=== PATIENT | female | born 1995 | race Hispanic/Latino ===

== ENCOUNTER 2021-02-07 21:32 | Emergency (ER) | payer SELFPAY ==
[2021-02-07] MEDS ORDERED: Boostrix 0.5 ML (Tdap) VIAL ONE (23:57)
== END 2021-02-08 00:17 | disposition home or self-care (01) ==
LOC: CSHERS 21:32
DX: S50.812A Abrasion of left forearm, initial encounter (principal); G43.909 Migraine, unspecified, not intractable, without status migrainosus; W26.0XXA Contact with knife, initial encounter
CPT/HCPCS: 90471; 90715; 99284

== ENCOUNTER 2021-08-29 14:12 | Emergency (ER) | payer OTHER, SELFPAY ==
[2021-08-29 14:44] LABS: BHCG - Serum Negative (NEGATIVE); Pregs Control Background? CLEAR/WHITE (CLR/WHITE); Pregs Control Bar Appear? YES (CONTROL BAR)
[2021-08-29 14:51] LABS: ALT (SGPT) 28 U/L (8-55); AST (SGOT) 19 U/L (5-34); Alkaline Phosphatase 69 U/L (40-110); Anion Gap 12 mmol/L (10-20); BUN (Urea Nitrogen) 9 mg/dL (7.0-18.7); Bilirubin, Total 0.7 mg/dL (0.2-1.2); Calc. Creatinine Clearance 0 mL/min (70-130); Calcium 8.6 mg/dL (7.8-10.44); Carbon Dioxide 24 mmol/L (22-29); Chloride 104 mmol/L (98-107); Estimated GFR 113; Globulin 3.1 g/dL (2.4-3.5); Glucose 106 mg/dL (70-105); Lipase 7 U/L (8-78); Potassium 3.8 mmol/L (3.5-5.1); Protein, Total 7.1 g/dL (6.0-8.3); Sodium 136 mmol/L (136-145)
[2021-08-29 14:58] LABS: #Monocytes 0.3 10x3/uL (0.0-1.1); #Neutrophils 10.5 10x3/uL (1.5-8.4); %Basophils 0.1 % (0.0-2.0); %Eosinophils 0.3 % (0.0-6.0); %Lymphocytes 8.2 % (18.0-47.0); %Monocytes 2.8 % (0.0-10.0); %Neutrophils 88.3 % (40.0-75.0); Hemoglobin 11.9 g/dL (12.0-15.5); Mean Corpuscular HGB CONC 31.5 g/dL (32.0-36.0); Mean Corpuscular Hemoglobin 24.8 pg (27.0-33.0); Mean Corpuscular Volume 78.9 fl (81.6-98.3); Mean Platelet Volume 10.9 fl (7.4-10.4); Platelet Count 266 10x3/uL (150-450); RBC Distribution Width 13.2 % (11.5-14.5); Red Blood Cell (RBC) Count 4.79 10x6/uL (3.90-5.03); White Blood Cell (WBC) Count 11.9 10x3/uL (3.5-10.5)
[2021-08-29] MEDS ORDERED: Metoclopramide HCl 10 MG/2 ML VIAL ONE (15:00)
[2021-08-29] MEDS ORDERED: Ketorolac Tromethamine 30 MG/ML VIAL ONE (15:00)
[2021-08-29 16:31] LABS: Bilirubin Neg (Negative); Blood, Urine Negative (Negative); Clarity Clear (Clear); Glucose, Urine (Dipstick) Normal (Negative); Ketone, Urine Negative (Negative); Leukocyte Negative (Negative); Nitrite Negative (Negative); Protein, Urine (Dipstick) 15 mg/dl (Neg-Trace)
[2021-08-29] MEDS ORDERED: Dicyclomine 20 MG/2 ML VIAL ONE (17:00)
[2021-08-29] MEDS ORDERED: Milk Of Magnesia 30 ML UDCUP ONE (17:00)
[2021-08-29] MEDS ORDERED: Lidocaine Viscous Sol 2% 15 ml UD Cup ONE (17:01)
[2021-08-29 17:22] LABS: Lactic Acid 2.2 mmol/L (0.5-2.2)
== END 2021-08-29 17:08 | disposition home or self-care (01) ==
LOC: CSHERS 14:12
DX: R10.13 Epigastric pain (principal); R11.2 Nausea with vomiting, unspecified; Z20.822 Contact with and (suspected) exposure to COVID-19
CPT/HCPCS: 36415; 74177; 80053; 81003; 83605; 83690; 84703; 85025; 87804; J1885; J2765; U0003; U0005

== ENCOUNTER 2021-10-09 13:17 | Emergency (ER) | payer SELFPAY ==
[2021-10-09] MEDS ORDERED: diphenhydrAMINE 25 MG CAP ONE (14:33)
[2021-10-09] MEDS ORDERED: Dexamethasone 10 MG/ML VIAL ONE (14:34)
== END 2021-10-09 14:59 | disposition home or self-care (01) ==
LOC: CSHERS 13:17
DX: T78.1XXA Other adverse food reactions, not elsewhere classified, initial encounter (principal)
CPT/HCPCS: 96372; 99283; J1100